=== PATIENT | male | born 1950 | race African-American/Black ===

== ENCOUNTER → 2022-05-27 | Day surgery (SDC) | payer MEDICARE, MEDICAID ==
[~2022-05-27] VITALS: Ht 167.6 cm; Wt 61.2 kg
[~2022-05-27] MED LIST: ACETAMINOPHEN 325MG TABLET PO NR; AMIN30LI2 PO; AMLO5TAB4 PO; ASPI-864 PO; ASPIRIN; ATOR-2 PO; BALANCED SALT IRRIG SOLN COMB1 500ML OP NR; CARV6.2548 PO; DOCU-150 PO; FAMO-135 PO; FURO-151 PO; HTCZ; HYALURONATE SODIUM 10 MG/ML 0.55ML SYRINGE IO ONE; HYDR-4134 PO; LACT10SO6 PO; LIDOCAINE HCL 2%/EPINEPHRINE 1:100,000 20 ML VIAL INFIL ONE; LISINOPRIL; METHYLPREDNISOLONE ACETATE 40MG/ML VIAL ONE; MIDAZOLAM HCL 2 MG/2 ML VIAL ONE; ONDANSETRON HCL 4MG/2ML INJ IV PRN; PHENYLEPHRINE 2.5% OPHTH 15 DROP/ML BOTTLE RIGHTEYE NR; PROPOFOL 200MG/20ML VIAL IV ONE; SIMVASTATIN; SODIUM CHLORIDE 0.9% 1,000 ML IV SCH; TOBRAMYCIN/DEXAMETH 0.1/0.3% OPHTH SUSP 2.5ML RIGHTEYE SCH; TROPICAMIDE 1% OPHTH DROPS 15ML RIGHTEYE NR
== END | disposition home or self-care (01) ==
LOC: OR 07:27
PROVIDERS: ATTEND Ophthalmology
DX: E11.36 Type 2 diabetes mellitus with diabetic cataract (principal); H25.89 Other age-related cataract; I13.0 Hypertensive heart and chronic kidney disease with heart failure and stage 1 through stage 4 chronic kidney disease, or unspecified chronic kidney disease; I50.9 Heart failure, unspecified; E11.22 Type 2 diabetes mellitus with diabetic chronic kidney disease; N18.9 Chronic kidney disease, unspecified; I25.10 Atherosclerotic heart disease of native coronary artery without angina pectoris; E78.00 Pure hypercholesterolemia, unspecified; I25.2 Old myocardial infarction; K21.9 Gastro-esophageal reflux disease without esophagitis; Z86.73 Personal history of transient ischemic attack (TIA), and cerebral infarction without residual deficits; Z79.82 Long term (current) use of aspirin; Z79.84 Long term (current) use of oral hypoglycemic drugs; Z79.899 Other long term (current) drug therapy; Z98.890 Other specified postprocedural states
CPT/HCPCS: 66984; 82962; J1030; J2250; J2704; J3490; V2632

== ENCOUNTER → 2022-10-14 | Day surgery (SDC) | payer MEDICARE, MEDICAID ==
[~2022-10-14] VITALS: Ht 167.6 cm; Wt 57.6 kg
[~2022-10-14] MED LIST changes: -ACETAMINOPHEN 325MG TABLET PO NR; +ACETYLCHOLINE CHLORIDE INTRAOCULAR SOLUTION 1:100 ELECTROLYTE DILUENT IO ONE; -ASPIRIN; +BALANCED SALT IRRIG SOLN 15ML ONE; +BUPIVACAINE HCL/PF 0.75% (7.5MG/ML) 10ML ONE; +FENTANYL CITRATE/PF 50MCG/ML 2ML VIAL ONE; -HTCZ; -HYALURONATE SODIUM 10 MG/ML 0.55ML SYRINGE IO ONE; -LISINOPRIL; -METHYLPREDNISOLONE ACETATE 40MG/ML VIAL ONE; -MIDAZOLAM HCL 2 MG/2 ML VIAL ONE; +MIDAZOLAM HCL 5 MG/5 ML VIAL ONE; -ONDANSETRON HCL 4MG/2ML INJ IV PRN; +PHENYLEPHRINE 2.5% OPHTH 15 DROP/ML BOTTLE LEFTEYE ONE; -PHENYLEPHRINE 2.5% OPHTH 15 DROP/ML BOTTLE RIGHTEYE NR; -PROPOFOL 200MG/20ML VIAL IV ONE; -SIMVASTATIN; +TETRACAINE 0.5% OPHTH DROPS 4ML ONE; -TOBRAMYCIN/DEXAMETH 0.1/0.3% OPHTH SUSP 2.5ML RIGHTEYE SCH; +TROPICAMIDE 1% OPHTH DROPS 15ML LEFTEYE ONE; -TROPICAMIDE 1% OPHTH DROPS 15ML RIGHTEYE NR
== END | disposition home or self-care (01) ==
LOC: OR 07:50
PROVIDERS: ATTEND Ophthalmology
DX: H25.89 Other age-related cataract (principal); I11.0 Hypertensive heart disease with heart failure; I50.9 Heart failure, unspecified; I25.2 Old myocardial infarction; E78.00 Pure hypercholesterolemia, unspecified; Z86.73 Personal history of transient ischemic attack (TIA), and cerebral infarction without residual deficits; Z87.891 Personal history of nicotine dependence; Z79.899 Other long term (current) drug therapy; Z98.890 Other specified postprocedural states; Z79.82 Long term (current) use of aspirin
CPT/HCPCS: 66984; 82962; J2250; J3010; J3490; V2632; Z7610